=== PATIENT | female | born 1990 | race Caucasian/White ===

== ENCOUNTER 2018-12-22 23:54 | Observation (INO) | payer OTHER ==
[2018-12-23] MEDS ORDERED: Ketorolac Tromethamine 30 MG/ML VIAL ONE (00:49)
[2018-12-23 00:59] LABS: #Basophils 0.1 thou/uL (0.0-0.2); #Eosinphils 0.1 thou/uL (0.0-0.7); #Lymphocytes 2.3 thou/uL (1.20-3.40); #Monocytes 0.6 thou/uL (0.11-0.59); #Neutrophils 4.1 thou/uL (1.40-6.50); %Basophils 0.8 % (0.0-1.0); %Eosinophils 1.4 % (0.0-10.0); %Lymphocytes 32.3 % (21.0-51.0); %Monocytes 8.7 % (0.0-10.0); %Neutrophils 56.8 % (42.0-75.0); Hemoglobin 15.5 g/dL (12.0-16.0); Mean Corpuscular HGB CONC 33.7 g/dL (32.0-36.0); Mean Corpuscular Hemoglobin 33.2 pg (27.0-31.0); Mean Corpuscular Volume 98.6 fL (78.0-98.0); Mean Platelet Volume 7.6 fL (7.4-10.4); Platelet Count 190 thou/uL (130-400); Red Blood Cell (RBC) Count 4.68 mill/uL (4.20-5.40); White Blood Cell (WBC) Count 7.3 thou/uL (4.8-10.8)
[2018-12-23] MEDS ORDERED: Magnesium 2 GM/50 ML BAG (IN WATER) ONE (01:06)
[2018-12-23] MEDS ORDERED: Sodium Chloride 0.9% 1,000 ML IV SCH (02:04)
[2018-12-23 02:12] VITALS: BMI 22.6
[2018-12-23] MEDS ORDERED: Acetaminophen 325 MG TAB PO PRN ×2 (03:03→09:45)
[2018-12-23] MEDS ORDERED: Melatonin 3 MG TAB PO SCH (03:15)
[2018-12-23] MEDS ORDERED: traMADol HCl 50 MG TAB PO SCH (06:30)
[2018-12-23] MEDS: Potassium Chloride 20 MEQ TAB PO SCH ×2 (08:16→12:16)
--- NOTE | 2018-12-23 08:56 | RAD ---
SINGLE VIEW OF THE CHEST: COMPARISON: None. HISTORY: Syncope and prolonged Q-T interval on EKG. FINDINGS: Single view of the chest shows a normal sized cardiomediastinal silhouette. There is no evidence of c onsolidation, mass, or pleural effusion. The bones are unremarkable. IMPRESSION: No evidence of acute cardiopulmonary disease. POS: C
[2018-12-23] MEDS ORDERED: Ketorolac Tromethamine 30 MG/ML VIAL IVP PRN (09:32)
[2018-12-23] MEDS ORDERED: Ondansetron PF 4 MG/2 ML Vial IVP PRN (09:45)
[2018-12-23] MEDS ORDERED: Nitroglycerin 0.4 MG TAB (25 Tab Bottle) PO PRN (09:45)
[2018-12-23] MEDS ORDERED: Senokot S 8.6-50 MG TAB PO PRN (09:45)
[2018-12-23] MEDS ORDERED: Bisacodyl 10 MG SUPP PR PRN (09:45)
[2018-12-23] MEDS ORDERED: Guaifenesin DM 100-10/5 ML UDCUP PO PRN (09:45)
[2018-12-23 11:45] VITALS: BP 100/58; TEMP 99.1
[2018-12-23] MEDS ORDERED: Famotidine 20 MG TAB PO SCH (21:00)
[2018-12-24] MEDS ORDERED: Enoxaparin Sodium 40 MG/0.4 ML SYRINGE SC SCH (09:00)
[2018-12-24] MEDS ORDERED: Aspirin 325 mg Enteric Coated Tablet PO SCH (09:00)
== END 2018-12-23 12:49 | disposition home or self-care (01) ==
LOC: ERS 23:54 → 2SW 12-23 01:51
PROVIDERS: ADMIT Family Medicine; ATTEND Family Medicine
DX: R55 Syncope and collapse (principal); I45.81 Long QT syndrome; F17.210 Nicotine dependence, cigarettes, uncomplicated
CPT/HCPCS: 36415; 71045; 83735; 85025; 90471; 90732; 93005; 93010; 96361; 96365; 96375; G0009; G0378; J1885; J3475

== ENCOUNTER 2021-03-05 20:12 | Inpatient (IN) | payer OTHER ==
[~2021-03-05 20:12] MED LIST: Iopamidol-370 76% 500 ML 1 ML ONE
[2021-03-05] MEDS ORDERED: Acetaminophen 500 MG TAB ONE (21:15)
[2021-03-05] MEDS ORDERED: Metoclopramide HCl 10 MG/2 ML VIAL ONE (21:16)
[2021-03-05] MEDS ORDERED: diphenhydrAMINE 50 MG/ML VIAL ONE (21:16)
[2021-03-05] MEDS ORDERED: Enoxaparin Sodium 80 MG/0.8 ML SYRINGE ONE (23:31)
[2021-03-05] MEDS ORDERED: Morphine 4 MG/ML VIAL ONE ×2 (23:31→23:45)
[2021-03-05] MEDS ORDERED: Acetaminophen 325 MG TAB PO PRN (23:44)
[2021-03-05] MEDS ORDERED: Ondansetron PF 4 MG/2 ML Vial IVP PRN (23:44)
[2021-03-05] MEDS ORDERED: Potassium Chloride 20 MEQ TAB PO SCH (23:59)
[2021-03-05] MEDS ORDERED: Magnesium Oxide 400 MG TAB PO SCH (23:59)
[2021-03-06] MEDS: HYDROcodone/Acetaminophen 5/325 mg Tablet PO PRN ×5 (01:09→21:14)
[2021-03-06 01:22] VITALS: BMI 27.3
[2021-03-06] MEDS ORDERED: Melatonin 3 MG TAB PO PRN (01:30)
[2021-03-06 05:53] LABS: Mean Corpuscular Hemoglobin 19.9 pg (27.0-31.0); Mean Corpuscular Volume 68.6 fL (78.0-98.0); Mean Platelet Volume 6.9 fL (7.4-10.4); Platelet Count 188 thou/uL (130-400); RBC Distribution Width 18.3 % (11.5-14.5); Red Blood Cell (RBC) Count 3.49 mill/uL (4.20-5.40); White Blood Cell (WBC) Count 9.1 thou/uL (4.8-10.8)
[2021-03-06 06:12] LABS: Iron 13 ug/dL (50-170); Iron Binding Capacity, Total 415 mcg/dL (265-497)
[2021-03-06 06:13] LABS: Anion Gap 11 mmol/L (10-20); BUN (Urea Nitrogen) 7 mg/dL (7.0-18.7); Calc. Creatinine Clearance 138 mL/min (70-130); Calcium 8.8 mg/dL (7.8-10.44); Carbon Dioxide 24 mmol/L (22-29); Chloride 104 mmol/L (98-107); Glucose 89 mg/dL (70-105); Iron 13 ug/dL (50-170); Iron Binding Capacity, Total 426 mcg/dL (265-497); Magnesium 1.8 mg/dL (1.6-2.6); Potassium 3.4 mmol/L (3.5-5.1); Sodium 136 mmol/L (136-145)
[2021-03-06] MEDS: Metoclopramide HCl 10 MG/2 ML VIAL IVP SCH ×2 (06:13→16:42)
[2021-03-06 06:18] LABS: #Eosinphils 0.1 thou/uL (0.0-0.7); #Lymphocytes 2.7 thou/uL (1.20-3.40); #Monocytes 0.9 thou/uL (0.11-0.59); #Neutrophils 5.2 thou/uL (1.40-6.50); %Basophils 0.5 % (0.0-1.0); %Eosinophils 1.5 % (0.0-10.0); %Lymphocytes 30.3 % (21.0-51.0); %Neutrophils 57.7 % (42.0-75.0); Hypochromia SLIGHT = 6-15 cells (100X) (0-5/hpf); MDiff Complete? YES; Microcytosis SLIGHT = 6-15 cells (100X) (0-5/hpf)
[2021-03-06] MEDS: Famotidine 20 MG TAB PO SCH ×2 (09:38→19:42)
[2021-03-06] MEDS ORDERED: Iron Sucrose Complex 200 MG in Sodium Chloride 0.9% 100 ML IVPB SCH (09:45)
[2021-03-06] MEDS ORDERED: Ondansetron ODT 4 MG TAB PO PRN (10:47)
[2021-03-06] MEDS ORDERED: Apixaban 5 MG TAB PO SCH ×2 (11:00→21:00)
[2021-03-06] MEDS ORDERED: Iron, Sodium Ferric Gluconate 250 MG in Sodium Chloride 0.9% 100 ML IVPB SCH (11:00)
[2021-03-06] MEDS ORDERED: levETIRAcetam 500 MG TAB PO SCH (11:00)
[2021-03-06] MEDS ORDERED: Enoxaparin Sodium 80 MG/0.8 ML SYRINGE SC SCH (12:00)
[2021-03-06] MEDS ORDERED: Sodium Chloride 0.9% 500 ML IV SCH (13:45)
[2021-03-06 14:02] LABS: Hemoglobin 8.7 g/dL (12.0-16.0); Mean Corpuscular HGB CONC 29.8 g/dL (32.0-36.0); Mean Corpuscular Hemoglobin 20.3 pg (27.0-31.0); Mean Corpuscular Volume 68.2 fL (78.0-98.0); Mean Platelet Volume 8.3 fL (7.4-10.4); Platelet Count 242 thou/uL (130-400); RBC Distribution Width 18.2 % (11.5-14.5); Red Blood Cell (RBC) Count 4.27 mill/uL (4.20-5.40); White Blood Cell (WBC) Count 14.1 thou/uL (4.8-10.8)
[2021-03-06] MEDS ORDERED: Promethazine HCl 12.5 MG in Sodium Chloride 0.9% 50 ML IVPB PRN (15:42)
[2021-03-06] MEDS: Morphine 2 MG/ML VIAL SLOW IVP PRN ×3 (16:05→23:17)
[2021-03-06] MEDS: levETIRAcetam 500 MG TAB PO SCH (19:42)
[2021-03-06] MEDS: Enoxaparin Sodium 60 MG/0.6 ML SYRINGE SC SCH (19:43)
[2021-03-06 20:08] LABS: SARS-CoV-2 PCR by NAA Not Detected (NotDetected)
[2021-03-07] MEDS: Morphine 2 MG/ML VIAL SLOW IVP PRN ×6 (02:27→21:43)
[2021-03-07] MEDS: HYDROcodone/Acetaminophen 5/325 mg Tablet PO PRN ×4 (03:49→18:08)
[2021-03-07 05:58] LABS: #Eosinphils 0.1 thou/uL (0.0-0.7); #Lymphocytes 2.3 thou/uL (1.20-3.40); #Monocytes 0.9 thou/uL (0.11-0.59); #Neutrophils 5.3 thou/uL (1.40-6.50); %Basophils 0.5 % (0.0-1.0); %Eosinophils 0.9 % (0.0-10.0); %Lymphocytes 26.3 % (21.0-51.0); %Monocytes 10.3 % (0.0-10.0); Hemoglobin 6.4 g/dL (12.0-16.0); Mean Corpuscular HGB CONC 29.2 g/dL (32.0-36.0); Mean Corpuscular Hemoglobin 19.8 pg (27.0-31.0); Mean Corpuscular Volume 67.9 fL (78.0-98.0); Mean Platelet Volume 7.2 fL (7.4-10.4); Platelet Count 174 thou/uL (130-400); Red Blood Cell (RBC) Count 3.23 mill/uL (4.20-5.40); White Blood Cell (WBC) Count 8.6 thou/uL (4.8-10.8)
[2021-03-07 06:21] LABS: Anion Gap 10 mmol/L (10-20); BUN (Urea Nitrogen) 6 mg/dL (7.0-18.7); Calc. Creatinine Clearance 140 mL/min (70-130); Calcium 8.9 mg/dL (7.8-10.44); Carbon Dioxide 24 mmol/L (22-29); Chloride 104 mmol/L (98-107); Glucose 94 mg/dL (70-105); Magnesium 1.7 mg/dL (1.6-2.6); Potassium 3.1 mmol/L (3.5-5.1); Sodium 135 mmol/L (136-145)
[2021-03-07] MEDS: Famotidine 20 MG TAB PO SCH ×2 (08:47→21:51)
[2021-03-07] MEDS: levETIRAcetam 500 MG TAB PO SCH ×2 (08:47→21:51)
[2021-03-07] MEDS: Enoxaparin Sodium 60 MG/0.6 ML SYRINGE SC SCH ×2 (08:49→21:51)
[2021-03-07] MEDS ORDERED: GoLYTELY 4,000 ml Bottle PO SCH (17:00)
[2021-03-07] MEDS: HYDROcodone/Acetaminophen 7.5/325 mg Tablet PO PRN (22:03)
[2021-03-08] MEDS: Morphine 2 MG/ML VIAL SLOW IVP PRN ×3 (01:20→13:43)
[2021-03-08] MEDS: HYDROcodone/Acetaminophen 7.5/325 mg Tablet PO PRN ×3 (02:44→15:51)
[2021-03-08 05:54] LABS: Anion Gap 7 mmol/L (10-20); BUN (Urea Nitrogen) Less than 4 mg/dL (7.0-18.7); Calc. Creatinine Clearance 147 mL/min (70-130); Calcium 8.7 mg/dL (7.8-10.44); Carbon Dioxide 26 mmol/L (22-29); Chloride 105 mmol/L (98-107); Glucose 87 mg/dL (70-105); Magnesium 1.7 mg/dL (1.6-2.6); Potassium 3.3 mmol/L (3.5-5.1); Sodium 135 mmol/L (136-145)
[2021-03-08] MEDS ORDERED: Magnesium 2 GM/50 ML 2 GM in Premix Bag 1 BAG IVPB SCH (08:00)
[2021-03-08] MEDS ORDERED: Midazolam HCl 2 mg/2 ml Vial ONE (08:41)
[2021-03-08] MEDS ORDERED: Lidocaine 1% PF 5 ML VIAL ONE (08:52)
[2021-03-08] MEDS ORDERED: PHENYLEPHRINE-NS 100 MCG/ML 10 ML SYRINGE ONE (08:52)
[2021-03-08] MEDS ORDERED: PROPOFOL 200 MG/20 ML VIAL ONE (08:52)
[2021-03-08 08:58] LABS: Anion Gap 14 mmol/L (10-20); BUN (Urea Nitrogen) 4 mg/dL (7.0-18.7); Calc. Creatinine Clearance 150 mL/min (70-130); Calcium 8.6 mg/dL (7.8-10.44); Carbon Dioxide 19 mmol/L (22-29); Chloride 107 mmol/L (98-107); Glucose 86 mg/dL (70-105); Potassium 3.5 mmol/L (3.5-5.1); Sodium 136 mmol/L (136-145)
[2021-03-08 09:20] LABS: INR-International Normal Ratio 1.2
[2021-03-08] MEDS ORDERED: Pantoprazole 40 MG VIAL IVP SCH (10:30)
[2021-03-08] MEDS: levETIRAcetam 500 MG TAB PO SCH (10:40)
[2021-03-08] MEDS: Potassium Chloride 20 MEQ in Premix Bag 1 BAG IVPB SCH ×2 (10:40→13:44)
[2021-03-08] MEDS: Famotidine 20 MG TAB PO SCH (10:41)
[2021-03-08 11:58] LABS: Hemoglobin 8.1 g/dL (12.0-16.0); Mean Corpuscular HGB CONC 30.9 g/dL (32.0-36.0); Mean Platelet Volume 6.2 fL (7.4-10.4); Platelet Count 198 thou/uL (130-400); RBC Distribution Width 20.3 % (11.5-14.5); Red Blood Cell (RBC) Count 3.69 mill/uL (4.20-5.40); White Blood Cell (WBC) Count 6.7 thou/uL (4.8-10.8)
[2021-03-08] MEDS ORDERED: Potassium Chloride 20 MEQ TAB PO SCH (14:15)
[2021-03-08 15:48] VITALS: BP 91/59; TEMP 98.3
[2021-03-09] MEDS ORDERED: Pantoprazole 40 MG VIAL IVP SCH (09:00)
== END 2021-03-08 18:30 | disposition home or self-care (01) | DRG 93 ==
LOC: ERS 20:12 → 3SE 23:28
PROVIDERS: ADMIT Internal Medicine; ATTEND Family Medicine
PROC: 30233N1 Transfusion of Nonautologous Red Blood Cells into Peripheral Vein, Percutaneous Approach (ICD-10-PCS; principal; 2021-03-07)
PROC: 0DB98ZX Excision of Duodenum, Via Natural or Artificial Opening Endoscopic, Diagnostic (ICD-10-PCS; 2021-03-08)
PROC: 0DB78ZX Excision of Stomach, Pylorus, Via Natural or Artificial Opening Endoscopic, Diagnostic (ICD-10-PCS; 2021-03-08)
PROC: 0DBN8ZZ Excision of Sigmoid Colon, Via Natural or Artificial Opening Endoscopic (ICD-10-PCS; 2021-03-08)
DX: G08 Intracranial and intraspinal phlebitis and thrombophlebitis (principal); D50.9 Iron deficiency anemia, unspecified; Z20.822 Contact with and (suspected) exposure to COVID-19; L40.9 Psoriasis, unspecified; F17.210 Nicotine dependence, cigarettes, uncomplicated; G40.409 Other generalized epilepsy and epileptic syndromes, not intractable, without status epilepticus; I95.89 Other hypotension; E53.8 Deficiency of other specified B group vitamins; K63.5 Polyp of colon; F15.10 Other stimulant abuse, uncomplicated
CPT/HCPCS: 36415; 36416; 36430; 70496; 80048; 82274; 82607; 82728; 82746; 83540; 83550; 83735; 85025; 85027; 85610; 86850; 86900; 86901; 88305; 95712; 95819; 95957; 96365; 96366; 96372; 96375; C9113; J1200; J1650; J2250; J2270; J2405; J2550; J2704; J2765; J2916; J3475; J3480; J3490; J7030; P9016; Q9967; U0003; U0005

== ENCOUNTER 2021-05-29 21:34 | Inpatient (IN) | payer OTHER ==
[2021-05-29] MEDS ORDERED: Heparin 25,000 units/D5W 500 ML ONE (22:11)
[2021-05-29] MEDS ORDERED: Morphine 4 MG/ML VIAL ONE (22:52)
[2021-05-29] MEDS ORDERED: Ondansetron PF 4 MG/2 ML Vial ONE (22:52)
[2021-05-30] MEDS ORDERED: Ondansetron ODT 4 MG TAB PO PRN (00:30)
[2021-05-30] MEDS ORDERED: Ondansetron PF 4 MG/2 ML Vial IVP PRN (00:30)
[2021-05-30] MEDS ORDERED: Acetaminophen 650 MG Suppository PR PRN (00:30)
[2021-05-30] MEDS ORDERED: Heparin 25,000 units/D5W 500 ML IV SCH (01:45)
[2021-05-30 01:47] VITALS: BMI 27.0
[2021-05-30] MEDS: Enoxaparin Sodium 80 MG/0.8 ML SYRINGE SC SCH ×2 (02:14→15:17)
[2021-05-30] MEDS: HYDROcodone/Acetaminophen 7.5/325 mg Tablet PO PRN ×2 (02:14→09:27)
[2021-05-30] MEDS: Melatonin 3 MG TAB PO PRN ×2 (02:14→20:51)
[2021-05-30 05:11] LABS: Iron Binding Capacity, Total 285 mcg/dL (265-497)
[2021-05-30 05:12] LABS: Anion Gap 10 mmol/L (10-20); BUN (Urea Nitrogen) 7 mg/dL (7.0-18.7); Calc. Creatinine Clearance 164 mL/min (70-130); Calcium 8.5 mg/dL (7.8-10.44); Carbon Dioxide 21 mmol/L (22-29); Chloride 105 mmol/L (98-107); Glucose 100 mg/dL (70-105); Iron Less than 8 ug/dL (50-170); Iron Binding Capacity, Total 291 mcg/dL (265-497); Potassium 3.1 mmol/L (3.5-5.1); Sodium 133 mmol/L (136-145)
[2021-05-30 05:16] LABS: Iron Less than 8 ug/dL (50-170)
[2021-05-30 06:56] LABS: #Lymphocytes 1.5 thou/uL (1.20-3.40); #Monocytes 0.9 thou/uL (0.11-0.59); #Neutrophils 9.3 thou/uL (1.40-6.50); %Eosinophils 0.4 % (0.0-10.0); %Lymphocytes 12.8 % (21.0-51.0); %Monocytes 7.6 % (0.0-10.0); %Neutrophils 79.2 % (42.0-75.0); Anisocytosis SLIGHT = 6-15 cells (100X) (0-5/hpf); Hypochromia SLIGHT = 6-15 cells (100X) (0-5/hpf); MDiff Complete? YES; Mean Corpuscular HGB CONC 28.9 g/dL (32.0-36.0); Mean Corpuscular Hemoglobin 21.4 pg (27.0-31.0); Mean Corpuscular Volume 74.1 fL (78.0-98.0); Mean Platelet Volume 10.9 fL (7.4-10.4); Microcytosis SLIGHT = 6-15 cells (100X) (0-5/hpf); Platelet Count 171 thou/uL (130-400); RBC Distribution Width 18.7 % (11.5-14.5); Red Blood Cell (RBC) Count 3.26 mill/uL (4.20-5.40); White Blood Cell (WBC) Count 11.7 thou/uL (4.8-10.8)
[2021-05-30 07:56] LABS: Reticulocyte Count 1.1 % (0.5-1.5)
[2021-05-30] MEDS ORDERED: FLU VACC QS2021-22(6MOS UP)/PF 60 MCG/0.5 ML SYRINGE IM ONE (09:00)
[2021-05-30] MEDS: levETIRAcetam in NS 500 MG in Premix Bag 1 BAG IVPB SCH ×2 (09:21→20:51)
[2021-05-30] MEDS: Morphine 4 MG/ML VIAL SLOW IVP PRN ×3 (11:06→19:28)
[2021-05-30 11:28] LABS: BHCG - Serum Negative (NEGATIVE); Pregs Control Background? CLEAR/WHITE (CLR/WHITE); Pregs Control Bar Appear? YES (CONTROL BAR)
[2021-05-30] MEDS ORDERED: Iron, Sodium Ferric Gluconate 250 MG in Sodium Chloride 0.9% 250 ML 250 ML IVPB SCH ×2 (12:30→14:45)
[2021-05-30] MEDS ORDERED: Vancomycin 1 GM in Premix Bag 1 BAG IVPB SCH (13:00)
[2021-05-30] MEDS ORDERED: Folic Acid 1 MG TAB PO SCH (13:14)
[2021-05-30] MEDS ORDERED: Piperacillin/Tazobactam 3.375 GM in Sodium Chloride 0.9% 100 ML IVPB SCH (14:00)
[2021-05-30 14:13] LABS: Bilirubin Negative (Negative); Blood, Urine Negative (Negative); Clarity Clear (Clear); Glucose, Urine (Dipstick) Normal (Negative); Ketone, Urine 10 mg/dL (Negative); Leukocyte Negative Leu/uL (Negative); Nitrite Negative (Negative); Protein, Urine (Dipstick) Negative (Neg-Trace); RBC/HPF 0-3 HPF (0-3); Specific Gravity, Urine 1.008 (1.002-1.036); Urobilinogen Normal mg/dL (Less than 2); WBC/HPF 0-3 HPF (0-3)
[2021-05-30 14:15] LABS: Bacteria/HPF Rare-Few HPF (None Seen)
[2021-05-30 14:17] LABS: Urine Culture Reflex No No
[2021-05-30] MEDS: Piperacillin/Tazobactam 3.375 GM in Sodium Chloride 0.9% 100 ML IVPB SCH (17:33)
[2021-05-30] MEDS: Warfarin Sodium 5 MG TAB PO SCH (17:34)
[2021-05-30] MEDS: Acetaminophen 325 MG TAB PO PRN (20:50)
[2021-05-31] MEDS: Piperacillin/Tazobactam 3.375 GM in Sodium Chloride 0.9% 100 ML IVPB SCH ×3 (02:12→17:48)
[2021-05-31] MEDS: Vancomycin HCl 1.75 GM in Sodium Chloride 0.9% 500 ML IVPB SCH ×2 (02:12→14:34)
[2021-05-31] MEDS: Enoxaparin Sodium 80 MG/0.8 ML SYRINGE SC SCH ×2 (02:12→16:41)
[2021-05-31] MEDS: Morphine 4 MG/ML VIAL SLOW IVP PRN ×4 (04:29→21:24)
[2021-05-31 06:02] LABS: INR-International Normal Ratio 1.5; Prothrombin Time 18.3 sec (12.0-14.7)
[2021-05-31] MEDS ORDERED: Ibuprofen 600 MG TAB PO PRN (08:37)
[2021-05-31] MEDS ORDERED: traMADol HCl 50 MG TAB PO PRN (08:41)
[2021-05-31] MEDS: levETIRAcetam 500 MG TAB PO SCH ×2 (09:04→21:24)
[2021-05-31] MEDS: Folic Acid 1 MG TAB PO SCH (09:04)
[2021-05-31] MEDS ORDERED: Iopamidol 370 76% 100 ML VIAL ONE (11:04)
[2021-05-31 12:43] LABS: #Eosinphils 0.1 thou/uL (0.0-0.7); #Lymphocytes 1.1 thou/uL (1.20-3.40); #Monocytes 0.5 thou/uL (0.11-0.59); #Neutrophils 8.1 thou/uL (1.40-6.50); %Basophils 0.2 % (0.0-1.0); %Eosinophils 0.7 % (0.0-10.0); %Lymphocytes 10.7 % (21.0-51.0); %Monocytes 5.3 % (0.0-10.0); Hemoglobin 7.4 g/dL (12.0-16.0); Hypochromia MODERATE=16-30 cells (100X) (0-5/hpf); MDiff Complete? YES; Mean Corpuscular HGB CONC 28.8 g/dL (32.0-36.0); Mean Corpuscular Hemoglobin 21.5 pg (27.0-31.0); Mean Corpuscular Volume 74.6 fL (78.0-98.0); Mean Platelet Volume 11.4 fL (7.4-10.4); Ovalocytes SLIGHT = 2-5 cells (100X) (0-1/hpf); Platelet Count 215 thou/uL (130-400); Platelet Morphology Comment Appears Adequate; Polychromasia SLIGHT = 2-3 cells (100X) (0-2/hpf); Red Blood Cell (RBC) Count 3.44 mill/uL (4.20-5.40); White Blood Cell (WBC) Count 9.8 thou/uL (4.8-10.8)
[2021-05-31 16:05] LABS: Legionella Urinary Ag Negative (Negative)
[2021-05-31 17:09] LABS: Strep pneumo Urine Ag NEGATIVE (NEGATIVE)
[2021-05-31] MEDS: Warfarin Sodium 5 MG TAB PO SCH (17:48)
[2021-05-31] MEDS: Melatonin 3 MG TAB PO PRN (21:24)
[2021-06-01] MEDS ORDERED: VANCOMYCIN 1.75 GM/350 ML BAG 1.75 GM in Premix Bag 1 BAG IVPB SCH ×2 (01:00→01:45)
[2021-06-01 01:19] LABS: Vancomycin, Trough 7.5 ug/mL
[2021-06-01] MEDS: Acetaminophen 325 MG TAB PO PRN (01:39)
[2021-06-01] MEDS: Enoxaparin Sodium 80 MG/0.8 ML SYRINGE SC SCH (01:41)
[2021-06-01] MEDS: Morphine 4 MG/ML VIAL SLOW IVP PRN (01:54)
[2021-06-01] MEDS: Piperacillin/Tazobactam 3.375 GM in Sodium Chloride 0.9% 100 ML IVPB SCH (03:59)
[2021-06-01 06:17] LABS: #Eosinphils 0.1 thou/uL (0.0-0.7); #Lymphocytes 1.8 thou/uL (1.20-3.40); #Monocytes 0.9 thou/uL (0.11-0.59); #Neutrophils 5.7 thou/uL (1.40-6.50); %Eosinophils 1.7 % (0.0-10.0); %Lymphocytes 21.3 % (21.0-51.0); %Monocytes 10.5 % (0.0-10.0); %Neutrophils 66.5 % (42.0-75.0); Hemoglobin 6.7 g/dL (12.0-16.0); Mean Corpuscular HGB CONC 29.8 g/dL (32.0-36.0); Mean Corpuscular Hemoglobin 22.1 pg (27.0-31.0); Mean Corpuscular Volume 74.1 fL (78.0-98.0); Mean Platelet Volume 10.6 fL (7.4-10.4); Platelet Count 228 thou/uL (130-400); RBC Distribution Width 18.8 % (11.5-14.5); Red Blood Cell (RBC) Count 3.04 mill/uL (4.20-5.40); White Blood Cell (WBC) Count 8.6 thou/uL (4.8-10.8)
[2021-06-01 06:21] LABS: INR-International Normal Ratio 2.2; Prothrombin Time 24.8 sec (12.0-14.7)
[2021-06-01 08:15] VITALS: BP 83/53; TEMP 98.3
[2021-06-01] MEDS: levETIRAcetam 500 MG TAB PO SCH (08:56)
[2021-06-01] MEDS: Folic Acid 1 MG TAB PO SCH (08:56)
[2021-06-01] MEDS ORDERED: VANCOMYCIN 1.25 GM/250 ML BAG 1.25 GM in Premix Bag 1 BAG IVPB SCH (10:00)
[2021-06-01] MEDS ORDERED: Piperacillin/Tazobactam 3.375 GM in Sodium Chloride 0.9% 100 ML IVPB SCH (12:00)
[2021-06-04 22:12] LABS: QuantiFERON-TB Gold Plus Negative (Negative)
== END 2021-06-01 09:54 | disposition left against medical advice (07) | DRG 91 ==
LOC: ERS 21:34 → NEURO 23:23
PROVIDERS: ADMIT Student in an Organized Health Care Education/Training Program; ATTEND Hospitalist
DX: G08 Intracranial and intraspinal phlebitis and thrombophlebitis (principal); A41.9 Sepsis, unspecified organism; D50.9 Iron deficiency anemia, unspecified; E53.8 Deficiency of other specified B group vitamins; F15.10 Other stimulant abuse, uncomplicated; R91.8 Other nonspecific abnormal finding of lung field; G40.409 Other generalized epilepsy and epileptic syndromes, not intractable, without status epilepticus; L40.9 Psoriasis, unspecified; F17.210 Nicotine dependence, cigarettes, uncomplicated; Z85.828 Personal history of other malignant neoplasm of skin; Z90.49 Acquired absence of other specified parts of digestive tract; Z98.51 Tubal ligation status; Z79.899 Other long term (current) drug therapy
CPT/HCPCS: 36415; 71045; 71260; 80048; 80177; 80202; 81001; 82607; 82728; 82746; 83540; 83550; 84145; 84443; 84703; 85025; 85046; 85610; 86038; 86225; 86480; 87040; 87070; 87116; 87205; 87206; 87449; 87899; 96365; 96375; J1644; J1650; J1953; J2270; J2405; J2543; J2916; J3370; J3490; J7030; J7050; Q9967

== ENCOUNTER 2023-04-17 19:45 | Emergency (ER) | payer OTHER ==
[2023-04-17 22:07] LABS: #Monocytes 0.6 thou/uL (0.11-0.59); #Neutrophils 4.9 thou/uL (1.40-6.50); %Basophils 0.4 % (0.0-1.0); %Eosinophils 0.5 % (0.0-10.0); %Monocytes 8.4 % (0.0-10.0); %Neutrophils 67.4 % (42.0-75.0); Hemoglobin 13.5 g/dL (12.0-16.0); Mean Corpuscular HGB CONC 31.4 g/dL (32.0-36.0); Mean Corpuscular Hemoglobin 24.9 pg (27.0-31.0); Mean Corpuscular Volume 79.3 fl (78.0-98.0); Mean Platelet Volume 10.3 fL (7.4-10.4); Platelet Count 179 10x3/uL (130-400); RBC Distribution Width 22.9 % (11.5-14.5); Red Blood Cell (RBC) Count 5.42 mill/uL (4.20-5.40); White Blood Cell (WBC) Count 7.3 10x3/uL (4.8-10.8)
[2023-04-17 22:13] LABS: BHCG - Serum Negative (NEGATIVE); Pregs Control Background? CLEAR/WHITE (CLR/WHITE); Pregs Control Bar Appear? YES (CONTROL BAR)
[2023-04-17 22:31] LABS: Magnesium 1.5 mg/dL (1.6-2.6)
[2023-04-17 22:33] LABS: ALT (SGPT) 27 U/L (8-55); AST (SGOT) 36 U/L (5-34); Albumin 3.9 g/dL (3.5-5.0); Alkaline Phosphatase 77 U/L (40-110); Anion Gap 13 mmol/L (10-20); BUN (Urea Nitrogen) 6 mg/dL (7.0-18.7); Bilirubin, Total 0.5 mg/dL (0.2-1.2); Calc. Creatinine Clearance 0 mL/min (70-130); Calcium 9.3 mg/dL (7.8-10.44); Carbon Dioxide 26 mmol/L (22-29); Chloride 97 mmol/L (98-107); Estimated GFR 113; Globulin 2.8 g/dL (2.4-3.5); Glucose 87 mg/dL (70-105); Lipase 46 U/L (8-78); Potassium 2.7 mmol/L (3.5-5.1); Protein, Total 6.7 g/dL (6.0-8.3); Sodium 133 mmol/L (136-145)
[2023-04-17 23:17] LABS: Bacteria/HPF None Seen HPF (None Seen); Bilirubin Negative (Negative); Blood, Urine Negative (Negative); CAUTI Indications for Culture Pelvic or flank pain; Clarity Turbid (Clear); Glucose, Urine (Dipstick) Normal (Negative); Ketone, Urine 20 mg/dL (Negative); Leukocyte Negative Leu/uL (Negative); Nitrite Negative (Negative); Protein, Urine (Dipstick) 30 mg/dL (Neg-Trace); RBC/HPF 0-3 HPF (0-3); Specific Gravity, Urine 1.013 (1.002-1.036); WBC/HPF 0-3 HPF (0-3)
[2023-04-17 23:19] LABS: Urine Culture Reflex No No
[2023-04-17] MEDS ORDERED: Potassium Chloride 20 MEQ TAB ONE (23:20)
[2023-04-17] MEDS ORDERED: Potassium Bicarbonate/Cit Ac 20 MEQ TAB PO SCH (23:59)
[2023-04-18] MEDS ORDERED: Magnesium 2 GM/50 ML BAG (IN WATER) ONE (00:31)
[2023-04-18] MEDS ORDERED: Ondansetron ODT 4 MG TAB ONE (02:31)
[2023-04-18 03:00] LABS: Amphetamine Not Detected (NotDetected); Barbiturates Screen Not Detected (NotDetected); Benzodiazepine Screen Not Detected (NotDetected); Cocaine Metabolite Screen Not Detected (NotDetected); Methadone Not Detected (NotDetected); Methamphetamine Not Detected (NotDetected); Opiate Screen Not Detected (NotDetected); Oxycodone Screen Not Detected (NotDetected); Phencyclidine (PCP) Not Detected (NotDetected); THC/Cannabinoid Screen Not Detected (NotDetected); Tricyclic Screen Not Detected (NotDetected)
== END 2023-04-18 03:27 | disposition left against medical advice (07) ==
LOC: ERS 19:45
DX: E87.6 Hypokalemia (principal); R94.31 Abnormal electrocardiogram [ECG] [EKG]; F17.210 Nicotine dependence, cigarettes, uncomplicated
CPT/HCPCS: 36415; 71045; 80053; 80306; 81001; 83690; 83735; 84443; 84703; 85025; 93005; 96361; 96365; J3475; Q0162

== ENCOUNTER 2023-08-28 11:10 | Emergency (ER) | payer SELFPAY ==
[2023-08-28 12:28] LABS: #Basophils 0.1 thou/uL (0.0-0.2); #Eosinphils 0.1 thou/uL (0.0-0.7); #Monocytes 0.8 thou/uL (0.11-0.59); #Neutrophils 6.4 thou/uL (1.40-6.50); %Basophils 0.7 % (0.0-1.0); %Eosinophils 1.1 % (0.0-10.0); %Lymphocytes 15.3 % (21.0-51.0); %Neutrophils 73.6 % (42.0-75.0); Hematocrit 35.2 % (36.0-47.0); Hemoglobin 10.5 g/dL (12.0-16.0); Mean Corpuscular HGB CONC 29.8 g/dL (32.0-36.0); Mean Corpuscular Volume 80.4 fl (78.0-98.0); Mean Platelet Volume 10.3 fL (7.4-10.4); Platelet Count 253 10x3/uL (130-400); RBC Distribution Width 17.9 % (11.5-14.5); Red Blood Cell (RBC) Count 4.38 mill/uL (4.20-5.40); White Blood Cell (WBC) Count 8.8 10x3/uL (4.8-10.8)
[2023-08-28 12:50] LABS: ALT (SGPT) 33 U/L (8-55); AST (SGOT) 41 U/L (5-34); Albumin 4.4 g/dL (3.5-5.0); Alkaline Phosphatase 71 U/L (40-110); Anion Gap 12 mmol/L (10-20); BUN (Urea Nitrogen) 7 mg/dL (7.0-18.7); Bilirubin, Total 0.4 mg/dL (0.2-1.2); Calc. Creatinine Clearance 0 mL/min (70-130); Calcium 9.4 mg/dL (7.8-10.44); Carbon Dioxide 23 mmol/L (22-29); Chloride 106 mmol/L (98-107); Estimated GFR 117; Globulin 3.1 g/dL (2.4-3.5); Glucose 91 mg/dL (70-105); Potassium 3.8 mmol/L (3.5-5.1); Protein, Total 7.5 g/dL (6.0-8.3); Sodium 137 mmol/L (136-145)
[2023-08-28] MEDS ORDERED: levETIRAcetam 500 MG TAB ONE (12:58)
[2023-08-28 13:35] LABS: Amphetamine Not Detected (NotDetected); Barbiturates Screen Not Detected (NotDetected); Benzodiazepine Screen Not Detected (NotDetected); Cocaine Metabolite Screen Not Detected (NotDetected); Methadone Not Detected (NotDetected); Methamphetamine Not Detected (NotDetected); Opiate Screen Not Detected (NotDetected); Oxycodone Screen Not Detected (NotDetected); Phencyclidine (PCP) Not Detected (NotDetected); THC/Cannabinoid Screen Not Detected (NotDetected); Tricyclic Screen Not Detected (NotDetected)
[2023-08-28 13:36] LABS: Bacteria/HPF None Seen HPF (None Seen); Bilirubin Negative (Negative); Blood, Urine Negative (Negative); CAUTI Indications for Culture Alt mental st,lethar; Clarity Clear (Clear); Glucose, Urine (Dipstick) Normal (Negative); Ketone, Urine Negative (Negative); Leukocyte Negative Leu/uL (Negative); Nitrite Negative (Negative); Pregnancy Test - Urine (BHCG) Negative (Negative); Pregu Control Background? CLEAR/WHITE (CLR/WHITE); Pregu Control Bar Appear? YES (CONTROL BAR); Protein, Urine (Dipstick) 10 mg/dL (Neg-Trace); RBC/HPF 0-3 HPF (0-3); Specific Gravity 1.025 (1.002-1.036); Specific Gravity, Urine 1.025 (1.002-1.036); Squamous Epithelial 0-3 HPF (0-3); Urobilinogen Normal mg/dL (Less than 2); WBC/HPF 0-3 HPF (0-3)
[2023-08-28 13:38] LABS: Urine Culture Reflex No No
== END 2023-08-28 14:15 | disposition home or self-care (01) ==
LOC: ERS 11:10
DX: R56.9 Unspecified convulsions (principal); L40.9 Psoriasis, unspecified; F17.210 Nicotine dependence, cigarettes, uncomplicated; Z79.899 Other long term (current) drug therapy
CPT/HCPCS: 36415; 70450; 72125; 80053; 80306; 81001; 81025; 85025